=== PATIENT | female | born 1990 | race Two or more races ===

== ENCOUNTER 2016-06-28 19:01 | Emergency (ER) | payer SELFPAY ==
--- NOTE | 2016-06-28 20:39 | ER Document Report ---
ED Medical Screen (RME) - General Chief Complaint: psych eval, SI Stated Complaint: PSYCH EVALUATION Time Seen by Provider: 06/28/16 20:26 Notes: Patient is a 26-year-old female who comes in with suicidal ideation. States that her is with another woman. Her parents will not talk to her. Patient states that she cut herself recently. Patient denies taking any extra doses of her medications. TRAVEL OUTSIDE OF THE [place] IN LAST 30 DAYS: No Past Medical History Renal/ Medical History: Denies: Hx Peritoneal Dialysis Review of Systems - Review of Systems Neurological/Psychological: See HPI Physical Exam - Vital signs Vitals: Temp Pulse Resp BP Pulse Ox 98.9 F 123 H 18 142/98 H 99 06/28/16 19:50 06/28/16 19:50 06/28/16 19:50 06/28/16 19:50 06/28/16 19:50 - Psychological Associated symptoms: Irritable, Tearful Course - Vital Signs Vital signs: Temp Pulse Resp BP Pulse Ox 98.9 F 123 H 18 142/98 H 99 06/28/16 19:50 06/28/16 19:50 06/28/16 19:50 06/28/16 19:50 06/28/16 19:50
[2016-06-28 21:23] LABS: ABSOLUTE BASOPHILS # (AUTO) 0.1 10^3/uL (0.0-0.2); ABSOLUTE EOSINOPHILS # (AUTO) 0.1 10^3/uL (0.0-0.6); ABSOLUTE LYMPHOCYTES (AUTO) 1.7 10^3/uL (0.5-4.7); ABSOLUTE MONOCYTES (AUTO) 0.9 10^3/uL (0.1-1.4); ABSOLUTE NEUT (AUTO) 5.9 10^3/uL (1.7-8.2); EOSINOPHILS % (AUTO) 1.5 % (0-6); HEMATOCRIT 43.3 % (36.0-47.0); HEMOGLOBIN 14.7 g/dL (12.0-15.5); HGB HCT DIFFERENCE 0.8; LYMPHOCYTES % (AUTO) 19.3 % (13-45); MEAN CORPUSCULAR HEMOGLOBIN 27.9 pg (27.0-33.4); MEAN CORPUSCULAR HGB CONC 33.9 g/dL (32.0-36.0); MEAN CORPUSCULAR VOLUME 83 fl (80-97); MONOCYTES % (AUTO) 9.9 % (3-13); RED BLOOD COUNT 5.24 10^6/uL (3.72-5.28); RED CELL DISTRIBUTION WIDTH 12.2 % (11.5-14.0); SEGMENTED NEUTROPHILS % (AUTO) 68.3 % (42-78); WHITE BLOOD COUNT 8.6 10^3/uL (4.0-10.5)
[2016-06-28 21:33] LABS: APPEARANCE,URINE CLOUDY; BILIRUBIN,URINE NEGATIVE (NEGATIVE); GLUCOSE, URINE NEGATIVE (NEGATIVE); KETONES,URINE TRACE mg/dL (NEGATIVE); LEUKOCYTE ESTERASE,URINE NEGATIVE (NEGATIVE); NITRITE,URINE NEGATIVE (NEGATIVE); PROTEIN,URINE 30 mg/dL (NEGATIVE); URINE SPECIFIC GRAVITY 1.033; UROBILINOGEN,URINE NEGATIVE mg/dL (<2.0)
[2016-06-28 21:42] LABS: ALANINE AMINOTRANSFERASE 127 U/L (9-52); ALBUMIN 4.5 g/dL (3.5-5.0); ALCOHOL < 10 mg/dL (NONE DETECTED); ALKALINE PHOSPHATASE 63 U/L (38-126); ANION GAP 13 (5-19); ASPARTATE AMINO TRANSFERASE 84 U/L (14-36); BILIRUBIN,DIRECT 0.5 mg/dL (0.0-0.4); BILIRUBIN,TOTAL 0.9 mg/dL (0.2-1.3); BLOOD UREA NITROGEN 15 mg/dL (7-20); CALCIUM 10.2 mg/dL (8.4-10.2); CARBON DIOXIDE 26 mmol/L (22-30); CHLORIDE 101 mmol/L (98-107); CREATININE RESULT 0.85 mg/dL (0.52-1.25); GLUCOSE 119 mg/dL (75-110); POTASSIUM 3.9 mmol/L (3.6-5.0); SODIUM 140.3 mmol/L (137-145); TOTAL PROTEIN 8.4 g/dL (6.3-8.2)
[2016-06-28 21:42] LABS: URINE BARBITURATES SCREEN NEGATIVE; URINE METHADONE SCREEN NEGATIVE; URINE OPIATES LOW NEGATIVE; URINE PHENCYCLIDINE SCREEN NEGATIVE
--- NOTE | 2016-06-28 23:26 | ER Document Report ---
ED General - General Chief Complaint: Psych Problem Stated Complaint: PSYCH EVALUATION Time Seen by Provider: 06/28/16 20:26 Notes: Patient is a 26-year-old female past history of depression, borderline personality disorder traits behaviors who presents with suicidal ideation. She has passive suicidal thoughts frequently but denies any specific plan. Notes increasing depression and anxiety over the last several months due to multiple family stressors and conflicts. Nothing seems improve her symptoms. She has not seen a psychiatrist regarding today's concerns. Notes that she has been evaluated the past and an emergent condition or suicidal thoughts. Does admit to some years behaviors including superficial cuts to her bilateral upper extremity as she states she has done "to know that I am alive". Denies any acute medical complaints. TRAVEL OUTSIDE OF THE [place] IN LAST 30 DAYS: No Past Medical History - General Information source: Patient - Social History Smoking Status: Current Some Day Smoker Frequency of alcohol use: None Drug Abuse: None Lives with: Family Family History: Reviewed & Not Pertinent Patient has suicidal ideation: Yes Renal/ Medical History: Denies: Hx Peritoneal Dialysis Review of Systems - Review of Systems Notes: Constitutional: Negative for fever. HENT: Negative for sore throat. Eyes: Negative for visual changes. Cardiovascular: Negative for chest pain. Respiratory: Negative for shortness of breath. Gastrointestinal: Negative for abdominal pain, vomiting or diarrhea. Genitourinary: Negative for dysuria. Musculoskeletal: Negative for back pain. Skin: Negative for rash. Neurological: Negative for headaches, weakness or numbness. 10 point ROS negative except as marked above and in HPI. Physical Exam - Vital signs Vitals: Temp Pulse Resp BP Pulse Ox 98.9 F 123 H 18 142/98 H 99 06/28/16 19:50 06/28/16 19:50 06/28/16 19:50 06/28/16 19:50 06/28/16 19:50 Interpretation: Tachycardic Notes: PHYSICAL EXAMINATION: GENERAL: Well-appearing, well-nourished and in no acute distress. HEAD: Atraumatic, normocephalic. EYES: Pupils equal round and reactive to light, extraocular movements intact, sclera anicteric, conjunctiva are normal. ENT: nares patent, oropharynx clear without exudates. Moist mucous membranes. NECK: Normal range of motion, supple without lymphadenopathy LUNGS: Breath sounds clear to auscultation bilaterally and equal. No wheezes rales or rhonchi. HEART: Regular rate and rhythm without murmurs ABDOMEN: Soft, nontender, normoactive bowel sounds. No guarding, no rebound. No masses appreciated. EXTREMITIES: Normal range of motion, no pitting or edema. No cyanosis. NEUROLOGICAL: No focal neurological deficits. Moves all extremities spontaneously and on command. PSYCH: Normal mood, normal affect. SKIN: Warm, Dry, normal turgor, superficial abrasions over the bilateral forearms Course - Re-evaluation Re-evalutation: 06/28/16 23:25 Patient presents with SI without a specific plan. She has superficial abrasions and lacerations on bilateral forearms do self-injurious behaviors without any deep wounds requiring repair. Patient does not have any specific plan she is requesting to stay and speak to psychiatry in the morning. She has not been placing IVC is of leave a large component of her presentation is related to borderline personality disorder and attention seeking behavior she is specifically asking whether or not we have contacted her family to let them know that she she is in the emergency department stating "we will see whether or not they really care about me". She denies any acute medical complaints. Her laboratories demonstrate positivity for cocaine and benzodiazepines but otherwise unremarkable. She is medically cleared for evaluation by psychiatry - Vital Signs Vital signs: Temp Pulse Resp BP Pulse Ox 98.9 F 123 H 18 142/98 H 99 06/28/16 19:50 06/28/16 19:50 06/28/16 19:50 06/28/16 19:50 06/28/16 19:50 - Laboratory Result Diagrams: 06/28/16 21:10 06/28/16 21:10 Laboratory results interpreted by me: 06/28/16 06/28/16 21:00 21:10 Glucose 119 H Direct Bilirubin 0.5 H AST 84 H ALT 127 H Total Protein 8.4 H Urine Protein 30 H Urine Ketones TRACE H Salicylates < 1.0 L Acetaminophen < 10 L - EKG Interpretation by Me Additional EKG results interpreted by me: 06/28/16 23:27 Sinus tachycardia. Rate 118. No ST elevations or depressions. QTC is 438.
[2016-06-28] MEDS ORDERED: ACETAMINOPHEN 325 MG TABLET PO ONE (23:33)
--- NOTE | 2016-06-28 23:56 | EKG REPORT ---
SEVERITY:- ABNORMAL ECG - SINUS TACHYCARDIA FIRST DEGREE AV BLOCK : Confirmed by: Valentine Johnson 28-Jun-2016 23:55:41
--- NOTE | 2016-06-29 09:28 | ER Document Report ---
Doctor's Note Notes: 06/29/16 09:27 26-year-old female past history of depression, borderline personality disorder traits behaviors who presents with suicidal ideation. Labs as recorded. Vital signs and heart rate currently is stable. Psychiatric evaluation is pending. Patient has no complaints at this time. 06/29/16 17:27 Patient is currently calm and cooperative. Psychiatry has evaluated the patient and does not believe that the patient is a threat to herself or others at this time. Patient denies any suicidal or homicidal ideations on my examination. Patient is calm and cooperative. Patient has a psychiatrist follow-up with. According to the psychiatry team the patient is safe to be discharged home.
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
[2016-06-29 17:52] VITALS: BP 114/81
== END 2016-06-29 17:52 | disposition home or self-care (01) ==
LOC: ER 19:01
DX: F31.9 Bipolar disorder, unspecified (principal); F19.10 Other psychoactive substance abuse, uncomplicated; F60.3 Borderline personality disorder; R45.851 Suicidal ideations; F17.200 Nicotine dependence, unspecified, uncomplicated; S50.812A Abrasion of left forearm, initial encounter; S50.811A Abrasion of right forearm, initial encounter; X78.9XXA Intentional self-harm by unspecified sharp object, initial encounter
CPT/HCPCS: 36415; 80053; 80307; 81001; 84703; 85025; 93005; 93010; 99284

== ENCOUNTER 2018-02-23 11:03 | Emergency (ER) | payer SELFPAY ==
[2018-02-23 11:13] VITALS: BP 138/74
== END 2018-02-23 11:19 | disposition left against medical advice (07) ==
LOC: ER 11:03
DX: Z53.21 Procedure and treatment not carried out due to patient leaving prior to being seen by health care provider (principal)

== ENCOUNTER 2018-05-18 20:47 | Emergency (ER) | payer SELFPAY ==
[2018-05-18 21:26] VITALS: BP 132/89
[2018-05-18] MEDS ORDERED: ONDANSETRON HCL INJ/PF 4 MG/2 ML SDV IV ONE (22:38)
[2018-05-18] MEDS ORDERED: NORMAL SALINE 1000 ML 1,000 ML IV ONE (22:38)
[2018-05-18 22:43] LABS: ABSOLUTE EOSINOPHILS # (AUTO) 0.1 10^3/uL (0.0-0.6); ABSOLUTE MONOCYTES (AUTO) 0.5 10^3/uL (0.1-1.4); ABSOLUTE NEUT (AUTO) 9.3 10^3/uL (1.7-8.2); BASOPHILS % (AUTO) 0.3 % (0-2); EOSINOPHILS % (AUTO) 0.5 % (0-6); HEMOGLOBIN 14.9 g/dL (12.0-15.5); LYMPHOCYTES % (AUTO) 9.5 % (13-45); MEAN CORPUSCULAR HGB CONC 35.5 g/dL (32.0-36.0); MEAN CORPUSCULAR VOLUME 85 fl (80-97); MONOCYTES % (AUTO) 4.6 % (3-13); PLATELET COUNT 290 10^3/uL (150-450); RED BLOOD COUNT 4.97 10^6/uL (3.72-5.28); RED CELL DISTRIBUTION WIDTH 12.2 % (11.5-14.0); SEGMENTED NEUTROPHILS % (AUTO) 85.1 % (42-78); TOTAL CELLS COUNTED % (AUTO) 100 %; WHITE BLOOD COUNT 10.9 10^3/uL (4.0-10.5)
[2018-05-18 22:56] LABS: ALANINE AMINOTRANSFERASE 42 U/L (9-52); ALBUMIN 4.5 g/dL (3.5-5.0); ALKALINE PHOSPHATASE 56 U/L (38-126); ANION GAP 11 (5-19); ASPARTATE AMINO TRANSFERASE 26 U/L (14-36); BILIRUBIN,DIRECT 0.3 mg/dL (0.0-0.4); BILIRUBIN,TOTAL 0.4 mg/dL (0.2-1.3); BLOOD UREA NITROGEN 9 mg/dL (7-20); CALCIUM 9.4 mg/dL (8.4-10.2); CARBON DIOXIDE 26 mmol/L (22-30); CHLORIDE 101 mmol/L (98-107); GLUCOSE 101 mg/dL (75-110); POTASSIUM 3.9 mmol/L (3.6-5.0); SODIUM 138.4 mmol/L (137-145); TOTAL PROTEIN 8.1 g/dL (6.3-8.2)
[2018-05-18 23:11] LABS: APPEARANCE,URINE SLIGHTLY-CLOUDY; BILIRUBIN,URINE NEGATIVE (NEGATIVE); COLOR,URINE YELLOW; GLUCOSE, URINE NEGATIVE (NEGATIVE); KETONES,URINE NEGATIVE (NEGATIVE); LEUKOCYTE ESTERASE,URINE NEGATIVE (NEGATIVE); NITRITE,URINE NEGATIVE (NEGATIVE); PROTEIN,URINE NEGATIVE (NEGATIVE)
--- NOTE | 2018-05-18 23:21 | ER Document Report ---
ED General - General Chief Complaint: Vomiting Stated Complaint: NAUSEA,VOMITING Time Seen by Provider: 05/18/18 22:28 Notes: Patient is a 27-year-old female who presents with complaint of nausea vomiting. She has had 1-2 episodes of diarrhea but mostly has had vomiting throughout the day. Symptoms have been going on for approximately 2 days. No blood in emesis. No blood in stool. No social abdominal pain. No fevers. No other complaints at this time. No dysuria. TRAVEL OUTSIDE OF THE [place] IN LAST 30 DAYS: No - Related Data Allergies/Adverse Reactions: No Known Allergies Allergy (Verified 05/19/18 00:03) Past Medical History - Social History Smoking Status: Unknown if Ever Smoked Frequency of alcohol use: None Drug Abuse: None Family History: Reviewed & Not Pertinent Patient has suicidal ideation: No Patient has homicidal ideation: No Renal/ Medical History: Denies: Hx Peritoneal Dialysis Review of Systems - Review of Systems Notes: My Normal Review Basic REVIEW OF SYSTEMS: CONSTITUTIONAL : Denies fever, chills, or sweats. Denies recent illness. EENT: Denies eye, ear, throat, or mouth pain or symptoms. Denies nasal or sinus congestion. CARDIOVASCULAR: Denies chest pain. RESPIRATORY: Denies cough, cold, or chest congestion. Denies shortness of breath, difficulty breathing, or wheezing. GASTROINTESTINAL: Denies abdominal pain. Vomiting diarrhea GENITOURINARY: Denies difficulty urinating, painful urination, burning, frequency, or blood in urine. FEMALE GENITOURINARY: Denies vaginal bleeding, abnormal or irregular periods. LMP: MUSCULOSKELETAL: Denies neck or back pain or joint pain or swelling. SKIN: Denies rash or skin lesions. NEUROLOGICAL: Denies altered mental status or loss of consciousness. Denies headache. Denies weakness or paralysis or loss of use of either side. Denies problems with gait or speech. Denies sensory or motor loss. ALL OTHER SYSTEMS REVIEWED AND NEGATIVE. Physical Exam - Vital signs Vitals: Temp Pulse Resp BP Pulse Ox 98.9 F 92 18 132/89 H 98 05/18/18 21:24 05/18/18 21:24 05/18/18 21:24 05/18/18 21:24 05/18/18 21:24 - Notes Notes: General Appearance: Well nourished, alert, cooperative, no acute distress, no obvious discomfort. Well appearing Vitals: reviewed, See vital signs table. Eyes: PERRL, EOMI, Conjuctiva clear Mouth: No decreasd moisture Lungs: No wheezing, No rales, No rhonci, No accessory muscle use, good air exchange bilaterally. Heart: Normal rate, Regular rythm, No murmur, no rub Abdomen: Normal BS, soft, No rigidity, No abdominal tenderness, No guarding, no rebound, no abdominal masses, no organomegaly Extremities: good pulses in all extremities, no swelling or tenderness in the extremities, no edema. Skin: warm, dry, appropriate color, no rash Neuro: speech clear, oriented x 3, normal affect, responds appropriately to questions. Course - Re-evaluation Re-evalutation: 05/19/18 01:09 Patient's nausea is improved. She is having some acid reflux and intermittent sharp pains in her esophagus. Did give her a dose of GI cocktail. This is starting to help. Patient overall looks well. She has not had any further vomiting. Is tolerating p.o. I feel she safe to be discharged home. I encouraged her to follow very bland diet over the next 24 hours to mostly clear liquids and to eat soft foods that are bland. No acidic foods or fried foods or fatty foods. I encouraged her return to ER if she has recurrent vomiting despite medicines, fevers, or any worsening pain. Patient's abdominal exam is benign without any significant pain to palpation except for just just some mild epigastric pain. Her abdomen is not concerning for acute surgical process. Her laboratory evaluation is unremarkable. Patient agrees with plan will be discharged home. Dictation of this chart was performed using voice recognition software; therefore, there may be some unintended grammatical errors. - Vital Signs Vital signs: Temp Pulse Resp BP Pulse Ox 98.9 F 92 18 132/89 H 98 05/18/18 21:24 05/18/18 21:24 05/18/18 21:24 05/18/18 21:24 05/18/18 21:24 - Laboratory Result Diagrams: 05/18/18 22:30 05/18/18 22:30 Laboratory results interpreted by me: 05/18/18 05/18/18 22:30 22:58 WBC 10.9 H Seg Neutrophils % 85.1 H Lymphocytes % 9.5 L Absolute Neutrophils 9.3 H Urine Urobilinogen 2.0 H Discharge - Discharge Clinical Impression: Vomiting Qualifiers: Vomiting type: unspecified Vomiting Intractability: unspecified Nausea presence: with nausea Qualified Code(s): R11.2 - Nausea with vomiting, unspecified Condition: Good Disposition: HOME, SELF-CARE Additional Instructions: Please take the nausea medicines as prescribed. I have prescribed two medications. The first medication is called Zofran. It will not make you sleepy or drowsy and you can take it and still drive or go to work. The second medication is Phenergan. This will may make you sleepy so do not drive after taking the medicine. Please avoid fried foods, fatty foods, or acidic foods. Over the next 24 hours drink mainly clear liquids that are non-caffeinated. You can eat some solid foods that are bland. Please return to ER immediately if you are not having improvement of your symptoms after 24-48 hrs. Return to ER immediately if you are having recurrent vomiting, severe pain, fevers, or feel that you are worsening in any way. Take Pepcid 20 mg twice a day. This can be bought [id number]. Prescriptions: Ondansetron [Zofran Odt 4 mg Tablet] 1 tab PO Q4H PRN #15 tab.rapdis PRN Reason: For Nausea/Vomiting Promethazine HCl [Phenergan 25 mg Tablet] 1 tab PO Q6H PRN #15 tablet PRN Reason: Forms: Return to Work
[2018-05-18] MEDS ORDERED: METOCLOPRAMIDE HCL INJ/PF 10 MG/2 ML SDV IV ONE (23:46)
[2018-05-19] MEDS ORDERED: METOCLOPRAMIDE HCL ORAL SOLN 10 MG/10 ML UDCUP PO ONE (00:37)
[2018-05-19] MEDS ORDERED: LIDOCAINE 2% VISCOUS SOLN 20 ML UDCUP PO ONE (00:37)
[2018-05-19] MEDS ORDERED: MAG HYDROX/AL HYDROX/SIMETH SUSP 30 ML UDCUP PO ONE (00:37)
[2018-05-19] MEDS ORDERED: ONDANSETRON ODT 4 MG TAB (6 TAB/ER DISP) PO PRN (01:11)
== END 2018-05-19 01:31 | disposition home or self-care (01) ==
LOC: ER 20:47
DX: R11.2 Nausea with vomiting, unspecified (principal); R19.7 Diarrhea, unspecified
CPT/HCPCS: 99283; 96361; 96374; 96375; 36415; 85025; 81025; 80053; 81001; J3490; J2765; J2405; J7030